=== PATIENT | male | born 1990 | race African-American/Black ===

== ENCOUNTER 2017-04-27 16:02 | Emergency (ER) | payer OTHER ==
[2017-04-27 16:34] LABS: ADD MAN DIFF? NO
[2017-04-27 16:38] LABS: BASO # 0.1 x10^3/uL (0.0-0.2); BASO % 1 % (0-3); EOS # 0.3 x10^3/uL (0.0-0.7); EOS % 6 % (0-3); HEMATOCRIT 44.6 % (39.0-53.0); HEMOGLOBIN 15.3 g/dL (13.0-17.5); LYMPH # 1.8 x10^3/uL (1.0-4.8); LYMPH % 33 % (24-48); MEAN CORPUSCULAR HEMOGLOBIN 29 pg (25-35); MEAN CORPUSCULAR HGB CONC 34 g/dL (31-37); MEAN CORPUSCULAR VOLUME 85 fL (79-100); MONO # 0.4 x10^3/uL (0.0-1.1); MONO % 7 % (0-9); NEUT # 3.1 x10^3uL (1.8-7.7); NEUT % 54 % (31-73); PLATELET COUNT 240 x10^3/uL (140-400); RED BLOOD COUNT 5.27 x10^6/uL (4.30-5.70); RED CELL DISTRIBUTION WIDTH 13.1 % (11.5-14.5); WHITE BLOOD COUNT 5.7 x10^3/uL (4.0-11.0)
[2017-04-27] MEDS: IV NORMAL SALINE 1000ML BAG 1,000 ML IV (16:40)
[2017-04-27 16:47] LABS: INR 1.1 (0.8-1.1); PROTHROMBIN TIME PATIENT 13.2 SEC (11.7-14.0)
[2017-04-27 16:53] LABS: ANION GAP 10 (6-14); BARBITURATES NEG (NEG); BENZODIAZEPINES NEG (NEG); BLOOD UREA NITROGEN 14 mg/dL (8-26); CALCIUM 9.5 mg/dL (8.5-10.1); CANNABINOIDS NEG (NEG); CARBON DIOXIDE 28 mmol/L (21-32); CHLORIDE 104 mmol/L (98-107); COCAINE NEG (NEG); CREATININE 1.5 mg/dL (0.7-1.3); GFR 67.9; GLUCOSE 103 mg/dL (70-99); METHADONE NEG (NEG); OPIATES NEG (NEG); PHENCYCLIDINE NEG (NEG); POTASSIUM 4.6 mmol/L (3.5-5.1); SODIUM 142 mmol/L (136-145)
[2017-04-27 16:55] LABS: AMPHETAMINE/METHAMPHETAMINE NEG (NEG); ETHANOL, URINE NEG (NEG)
[2017-04-27 16:57] LABS: SALIC < 2.8 mg/dL (2.8-20.0)
[2017-04-27 16:58] LABS: ACETAMIN < 2 mcg/ml (10-30); ETHANOL < 10 mg/dL (0-10)
[2017-04-27 17:05] LABS: ALK PHOS 85 U/L (46-116); ALT (SGPT) 37 U/L (16-63); AST (SGOT) 22 U/L (15-37); DIRECT BILIRUBIN 0.1 mg/dL (0.0-0.2); LIPASE 112 U/L (73-393); MAGNESIUM 1.9 mg/dL (1.8-2.4); TOTAL BILIRUBIN 0.2 mg/dL (0.2-1.0); TOTAL PROTEIN 8.1 g/dL (6.4-8.2)
[2017-04-27 17:10] LABS: CREATINE KINASE 350 U/L (39-308)
[2017-04-27 17:11] LABS: NT-PRO BNP < 5 pg/mL (0-124); TROPONINI < 0.017 ng/mL (0.000-0.055)
[2017-04-27 17:11] LABS: CKMB INDEX 0.1 % (0-4); CKMB MASS < 0.5 ng/mL (0.0-3.6)
== END 2017-04-27 20:38 | disposition home or self-care (01) ==
LOC: ER 16:02
DX: T46.4X2A Poisoning by angiotensin-converting-enzyme inhibitors, intentional self-harm, initial encounter (principal); R45.851 Suicidal ideations; Y92.89 Other specified places as the place of occurrence of the external cause
CPT/HCPCS: 36415; 71045; 80048; 80076; 80307; 80329; 82553; 83605; 83690; 83735; 83880; 84484; 85025; 85610; 93005; 96360; 99285-25; G0480; J7030